=== PATIENT | female | born 1995 | race American Indian/Alaskan Native ===

== ENCOUNTER 2024-01-01 19:28 | Emergency (ER) | payer MEDICAID ==
[~2024-01-01] VITALS: Ht 165.1 cm; Wt 63.5 kg
[2024-01-01 19:33] VITALS: BP_SYST 101; PULSE 61; RESP 18; TEMP 98; O2SAT 99
[2024-01-01] MEDS ORDERED: AUG875 PO (21:23)
[2024-01-01] MEDS ORDERED: NAPR-1172 PO (21:23)
[2024-01-01 21:27] VITALS: BP_SYST 101; PULSE 61; RESP 18; TEMP 98; O2SAT 99
== END 2024-01-01 21:26 | disposition home or self-care (01) ==
LOC: SED 19:28
DX: H65.192 Other acute nonsuppurative otitis media, left ear (principal)
CPT/HCPCS: 99283